=== PATIENT | male | born 1965 | race Caucasian/White ===

== ENCOUNTER → 2018-08-27 09:14 | Outpatient (CLI) | payer OTHER, SELFPAY ==
--- NOTE | 2018-08-27 09:23 | RAD_ITS ---
HISTORY: low back pain, left hip pain and numbness down leg COMPARISON: None FINDINGS: XR Spine Lumbar 5 views The lumbar vertebra show normal height and alignment. No fracture or acute disease. The lumbar disc space heights are grossly preserved. Mild anterolateral endplate spurring of the L4-5 and L5-S1 levels. The posterior elements appear intact. No spondylolisthesis. The SI joints are grossly preserved. Abdominal aorta is atherosclerotic. RAD/L/S Spine Min 4 Views IMPRESSION: 1. No fracture or acute disease. 2. L4-5 and L5-S1 mild degenerative spondylosis. 3. Atherosclerotic calcifications. at 0814 Reported and signed by: Paul Bryant MD Electronically Signed: Paul Bryant, at 8:13 EST Tel , Service support ,
--- NOTE | 2018-08-27 09:24 | RAD_ITS ---
HISTORY: low back pain, left hip pain and numbness down leg COMPARISON: 02/04/2016 FINDINGS: XR left Hip Unilateral with Pelvis when performed; 3 Views: No fracture or acute disease. Left hip advanced osteoarthritis with marked joint space narrowing accompanied by marginal spurring and subchondral cyst formation of both the acetabulum and femoral head. Joint space narrowing is greatest at the superior lateral joint space and osteoarthritis has progressed compared to previous. Additional mild narrowing of the right hip joint. The right femoral head at the head neck junction shows a lateral bony spur like density as seen with Cam type femoral acetabular impingement. Chronic deformity of the right superior and inferior pubic rami compatible with old trauma. The SI joints are grossly preserved. RAD/HIP, UNI W/ Pelvis 2-3 Views IMPRESSION: 1. Left hip advanced osteoarthritis with worsening compared to the 2016 exam. 2. Right hip mild osteoarthritis with suggestion of underlying femoral acetabular impingement on the right. at 0810 Reported and signed by: Paul Bryant MD Electronically Signed: Paul Bryant, at 8:09 EST Tel , Service support ,
[2018-08-27 12:16] LABS: Anion Gap 9 (5-15); BUN 16 mg/dL (7-18); BUN/Creat Ratio 15.2 RATIO (10-20); Calcium,Total 8.7 mg/dL (8.5-10.1); Chloride 103 mmol/L (98-107); Cholesterol 173 mg/dL (200); Creatinine, Serum 1.05 mg/dL (0.70-1.30); EST Glomerular Filtration Rate 79 mL/min (>60); Est Glom Filt Rate - Afr Amer 95 mL/min (>60); Glucose 116 mg/dL (74-106); High Density Lipoprotein 35 mg/dL; Sodium Level 140 mmol/L (136-145); Triglycerides 98 mg/dL; Very Low Density Lipoprotein 20 mg/dL (5-40)
== END ==
PROVIDERS: Family Provider Family Medicine; PCP Family Medicine; Referring Provider Family Medicine; Visit Provider Family Medicine
DX: I10 Essential (primary) hypertension (principal); M54.40 Lumbago with sciatica, unspecified side; M47.897 Other spondylosis, lumbosacral region; M16.0 Bilateral primary osteoarthritis of hip
CPT/HCPCS: 36415; 72110; 73502; 80048; 80061

== ENCOUNTER → 2018-09-10 09:35 | Outpatient (CLI) | payer OTHER, SELFPAY ==
--- NOTE | 2018-09-10 09:48 | MRI_ITS ---
STUDY: MRI LUMBAR SPINE WITHOUT CONTRAST REASON FOR EXAM: Male, 52 years old. LEFT HIP PAIN, pain and burning down left leg, groin pain. TECHNIQUE: Standardized fat and water weighted pulse sequences were obtained in the sagittal and axial planes. COMPARISON: X-ray dated August 27, 2018 FINDINGS: T12-L1: Normal endplates. Normal disc height, hydration and morphology. Normal bilateral facet joints. Normal central canal and bilateral lateral recesses. Normal bilateral intervertebral neural foramina. There is incompletely visualized dorsal fluid collection measuring approximately 0.5 x 3.6 cm (axial image #27 series 5). There is mass effect on the dorsal spinal cord Normal lumbar lordosis. There is mild scoliosis Normal conus medullaris that terminates at the L1 L1-2: There is minimal disc space narrowing and endplate spondylosis. There is a minimal disc bulge and epidural lipomatosis with moderate central canal stenosis. There is mild facet arthropathy. There is no foraminal stenosis. L2-3: There is minimal disc space narrowing and endplate spondylosis. There is a minimal disc bulge and facet arthropathy with moderate central canal stenosis. There is mild facet arthropathy. There is mild bilateral foraminal stenosis. L3-4: There is minimal disc space narrowing and endplate spondylosis. There is a minimal disc bulge and facet arthropathy with moderate central canal stenosis. There is mild facet arthropathy. There is mild bilateral foraminal stenosis. L4-5: There is minimal disc space narrowing and endplate spondylosis. There is a minimal disc bulge and facet arthropathy with mild central canal stenosis. There is mild facet arthropathy. There is mild bilateral foraminal stenosis. L5-S1: There is minimal disc space narrowing and endplate spondylosis. There is a minimal disc bulge and facet arthropathy with mild central canal stenosis. There is mild facet arthropathy. There is mild bilateral foraminal stenosis. Normal visualized sacral ala. Normal visualized paraspinous soft tissue structures. MRI/Spine Lumbar (Routine) IMPRESSION: T12/L1: Fluid collection with mild compression of the spinal cord. Further evaluation with contrast-enhanced MRI of the thoracic spine with attention to this region is recommended. Multilevel moderate central canal stenosis. N.B. : The above information has been verbally conveyed by Aimee Biswas MD to Dr. Cheryl MD, on 09/11/2018 10:20:36 (ET). Electronically Signed: Aimee Biswas MD at 10:12 EST Tel , Service support ,
--- OUTSIDE RECORDS SUMMARY | 2018-11-12 19:45 | XMS RPT_ITS ---
:1965 Author Organization OH[facility] Care Team Providers Name Role Phone Austin Luna Attending Unavailable Austin Luna Referring Unavailable Austin Luna Primary Care Unavailable Austin Luna Attending Unavailable Austin Luna Referring Unavailable Austin Luna Primary Care Unavailable PROBLEMS PROBLEMS DATE TYPE CONDITION / CODE ATTENDING STATUS SOURCE 08/27/2018 Unknown M54.42 - Lumbago Cheryl, Active [facility] with sciatica, left [facility] side / Hospital M54.42(ICD-10) Repository 08/27/2018 Unknown M16.9 - Ranney, Active [facility] Osteoarthritis of [facility] hip, unspecified / Hospital M16.9(ICD-10) Repository 08/27/2018 Unknown I10 - Essential Mattmaribell, Active [facility] (primary) [facility] hypertension / Hospital I10(ICD-10) Repository PROCEDURES PROCEDURES No Procedure Records FoundRESULTS RESULTS SPINE LUMBAR Observed: 09/10/2018 Status: F Source: JUNG (ROUTINE) 9:48 AM [facility] REPOSITORY [facility] Imaging Services [address] [place] [address] Spine Lumbar (Routine) MR#: [id number] Acct: [id number] Name: JOSEPH JACKSON Rep #: [id number] : 1965 M 52 From: Aimee Biswas PCP: Austin Luna MD Status: REG CLI Study: Spine Lumbar (Routine) Date of Exam: 09/10/18 Exam# [id number] Ordering Dr: Sergio Luna MD STUDY: MRI LUMBAR SPINE WITHOUT CONTRAST REASON FOR EXAM: Male, 52 years old. LEFT HIP PAIN, pain and burning down left leg, groin pain. TECHNIQUE: Standardized fat and water weighted pulse sequences were obtained in the sagittal and axial planes. COMPARISON: X-ray dated August 27, 2018 FINDINGS: T12-L1: Normal endplates. Normal disc height, hydration and morphology. Normal bilateral facet joints. Normal central canal and bilateral lateral recesses. Normal bilateral intervertebral neural foramina. There is incompletely visualized dorsal fluid collection measuring approximately 0.5 x 3.6 cm (axial image #27 series 5). There is mass effect on the dorsal spinal cord Normal lumbar lordosis. There is mild scoliosis Normal conus medullaris that terminates at the L1 L1-2: There is minimal disc space narrowing and endplate spondylosis. There is a minimal disc bulge and epidural lipomatosis with moderate central canal stenosis. There is mild facet arthropathy. There is no foraminal stenosis. L2-3: There is minimal disc space narrowing and endplate spondylosis. There is a minimal disc bulge and facet arthropathy with moderate central canal stenosis. There is mild facet arthropathy. There is mild bilateral foraminal stenosis. L3-4: There is minimal disc space narrowing and endplate spondylosis. There is a minimal disc bulge and facet arthropathy with moderate central canal stenosis. There is mild facet arthropathy. There is mild bilateral foraminal stenosis. L4-5: There is minimal disc space narrowing and endplate spondylosis. There is a minimal disc bulge and facet arthropathy with mild central canal stenosis. There is mild facet arthropathy. There is mild bilateral foraminal stenosis. L5-S1: There is minimal disc space narrowing and endplate spondylosis. There is a minimal disc bulge and facet arthropathy with mild central canal stenosis. There is mild facet arthropathy. There is mild bilateral foraminal stenosis. Normal visualized sacral ala. Normal visualized paraspinous soft tissue structures. MRI/Spine Lumbar (Routine) IMPRESSION: T12/L1: Fluid collection with mild compression of the spinal cord. Further evaluation with contrast-enhanced MRI of the thoracic spine with attention to this region is recommended. Multilevel moderate central canal stenosis. N.B. : The above information has been verbally conveyed by Aimee Biswas MD to Dr. Cheryl MD, on 09/11/2018 10:20:36 (ET). Electronically Signed: Aimee Biswas MD at 10:12 EST Tel , Service support , CC: Austin Luna MD Gear Setter: Signed BASIC METABOLIC Collected: 08/27/2018 Status: F Source: [facility] PROFILE ([facility]) 9:26 AM [facility] REPOSITORY TYPE CODE TESTS RESULT OUT OF RANGE REFERENCE UNITS LAB L501.0100 74-106 mg/dL High GLU 116 Result Comment: Fasting Glucose result from 100 to 125 mg/dL suggests IMPAIRED HOMEOSTASIS per A.D.A. criteria. Please note revised GLUCOSE reference range effective 2017. LAB L501.1000 7-18 mg/dL Normal BUN 16 LAB L501.1100 0.70-1.30 mg/dL Normal CREAT,SERUM 1.05 Result Comment: The validity of the calculated GFR AND GFRAA in patients over 70 years has not been determined. Clinical correlation is essential. LAB L501.1110 >60 mL/min Normal EST GFR 79 Result Comment: Non- GFR Calc LAB L501.1115 >60 mL/min Normal EST GFR - AA 95 Result Comment: GFR Calc LAB L501.1300 10-20 RATIO Normal BUN/CRE 15.2 LAB L501.2200 8.5-10.1 mg/dL CA Normal 8.7 LAB L501.5300 136-145 mmol/L NA Normal 140 LAB L501.5600 3.5-5.1 mmol/L K Normal 4.0 LAB L501.5900 98-107 mmol/L CL Normal 103 LAB L501.6100 21.0-32.0 mmol/L Normal CO2 28.0 LAB L501.6200 5-15 Normal GAP 9 Performed By: #### L500.2500, L500.4100 #### [facility] Laboratory [facility] [place], [address] LIPID PROFILE Collected: 08/27/2018 Status: F Source: [place] 9:26 AM [facility] REPOSITORY TYPE CODE TESTS RESULT OUT OF RANGE REFERENCE UNITS LAB L501.4900 200 mg/dL Normal CHOL 173 Result Comment: <200 mg/dL Desirable 200-240 mg/dL Borderline >240 mg/dL High Risk LAB L501.5000 mg/dL Normal TRIG 98 Result Comment: The drugs N-Acetylcysteine and Metamizole may falsely depress this assay. Serum Triglycerides Reference Interval Normal <150 mg/dL Borderline high 150 - 199 mg/dL High 200 - 499 mg/dL Very High > or = 500 mg/dL LAB L501.6400 mg/dL Low HDL 35 Result Comment: The drugs N-Acetylcysteine and Metamizole may falsely depress this assay. Reference Range HDL <40 mg/dL Low HDL Cholesterol HDL >or= 60 mg/dL High HDL Cholesterol LAB L501.6500 0-130 mg/dL Normal LDL 118 LAB L501.6600 5-40 mg/dL Normal VLDL 20 Performed By: #### L500.2500, L500.4100 #### [facility] Laboratory [address] [place], [address] HIP, UNI W/ PELVIS Observed: 08/27/2018 Status: F Source: [place] 2-3 VIEWS 9:24 AM [facility] REPOSITORY [facility] Imaging Services [address] [address] HIP, UNI W/ Pelvis 2-3 Views MR#: [id number] Acct: [id number] Name: JOSEPH JACKSON Moody Rep #: [id number] : 1965 M 52 From: Paul Bryant MD PCP: Austin Luna MD Status: REG CLI Study: HIP, UNI W/ Pelvis 2-3 Views Date of Exam: 08/27/18 Exam# [id number] Ordering Dr: Sergio Luna MD HISTORY: low back pain, left hip pain and numbness down leg COMPARISON: 02/04/2016 FINDINGS: XR left Hip Unilateral with Pelvis when performed; 3 Views: No fracture or acute disease. Left hip advanced osteoarthritis with marked joint space narrowing accompanied by marginal spurring and subchondral cyst formation of both the acetabulum and femoral head. Joint space narrowing is greatest at the superior lateral joint space and osteoarthritis has progressed compared to previous. Additional mild narrowing of the right hip joint. The right femoral head at the head neck junction shows a lateral bony spur like density as seen with Cam type femoral acetabular impingement. Chronic deformity of the right superior and inferior pubic rami compatible with old trauma. The SI joints are grossly preserved. RAD/HIP, UNI W/ Pelvis 2-3 Views IMPRESSION: 1. Left hip advanced osteoarthritis with worsening compared to the 2016 exam. 2. Right hip mild osteoarthritis with suggestion of underlying femoral acetabular impingement on the right. at 0810 Reported and signed by: Paul Bryant MD Electronically Signed: Paul Bryant, at 8:09 EST Tel , Service support , CC: Austin Luna MD Gear Setter: Signed L/S SPINE MIN 4 Observed: 08/27/2018 Status: F Source: JUNG VIEWS 9:24 AM [facility] REPOSITORY [facility] Imaging Services [address] [place] [id number] L/S Spine Min 4 Views MR#: [id number] Acct: [id number] Name: JOSEPH JACKSON Rep #: [id number] : 1965 M 52 From: Paul Bryant MD PCP: Austin Luna MD Status: REG CLI Study: L/S Spine Min 4 Views Date of Exam: 08/27/18 Exam# [id number] Ordering Dr: Sergio Luna MD HISTORY: low back pain, left hip pain and numbness down leg COMPARISON: None FINDINGS: XR Spine Lumbar 5 views The lumbar vertebra show normal height and alignment. No fracture or acute disease. The lumbar disc space heights are grossly preserved. Mild anterolateral endplate spurring of the L4-5 and L5-S1 levels. The posterior elements appear intact. No spondylolisthesis. The SI joints are grossly preserved. Abdominal aorta is atherosclerotic. RAD/L/S Spine Min 4 Views IMPRESSION: 1. No fracture or acute disease. 2. L4-5 and L5-S1 mild degenerative spondylosis. 3. Atherosclerotic calcifications. at 0814 Reported and signed by: Paul Bryant MD Electronically Signed: Paul Bryant, at 8:13 EST Tel , Service support , CC: Austin Luna MD Gear Setter: Signed ALLERGIES ALLERGIES No Allergies Records FoundENCOUNTERS ENCOUNTERS ADMIT/DISCHARGE ACCOUNT ADMITTING ENCOUNTER LOCATION SOURCE NUMBER CLASS 09/10/2018 [id number] Ambulatory [facility] ing:MRI Repository 08/27/[id number] ing:MTLAB Repository PAYERS PAYERS ENCOUNTER GUARANTOR PAYER SUBSCRIBER SOURCE 09/10/2018 JOSEPH Uriostegui Primary Insurance:[facility] JOSEPH Feng [id number] HEYL PACKAGE PLANPolicy ICKESDOB: [place], [place] Number: [id number] [address]Qbn: [phone] [id number] Repository [phone] () Date:2018-09-04 09/10/2018 Secondary JOSEPH Feng Insurance:MED MUTUAL ICKESDOB: [facility] Number: [id number] [id number] Repository Date:[id number] [address], [place] [address]FZ: CHECK WEBSITE 09/10/2018 Tertiary NOT GIVENUNK Jung Insurance:SELF PAY [facility] Number: Effective Repository Date:2018-09-04 08/27/2018 JOSEPH JACKSON Primary Insurance:MED JOSEPH JACKSON Jung [id number] HEYL MUTUAL TPAPolicy JRDOB: [place], [place] Number: [id number] [address]Cnc: [phone] [id number] Repository [phone] (HP) Date:[id number] [address], [place] [address]BD: CHECK WEBSITE 08/27/2018 Secondary NOT GIVENUNK Jung Insurance:SELF PAY [facility] Number: Effective Repository Date:2018-08-27
== END ==
PROVIDERS: Family Provider Family Medicine; PCP Family Medicine; Referring Provider Family Medicine; Visit Provider Family Medicine
DX: M25.552 Pain in left hip (principal)
CPT/HCPCS: 72148

== ENCOUNTER → 2018-09-19 13:09 | Outpatient (CLI) | payer OTHER, SELFPAY ==
--- NOTE | 2018-09-19 13:24 | MRI_ITS ---
STUDY: MRI THORACIC SPINE WITH AND WITHOUT CONTRAST REASON FOR EXAM: Male, 52 years old. Thoracic cord abnormality TECHNIQUE: 13 ml of Gadavist was administered intravenously for the contrast portion of the examination. COMPARISON: MR lumbar spine September 10, 2018 FINDINGS: Normal kyphosis of the thoracic spine. There is no substantial scoliosis. T1-2, T2-3, T3-4, T4-5, T5-6, T6-7, T7-8, T8-9, T9-10, T10-11, T11-12: Normal endplates. Normal disc hydration, heights and morphology of the corresponding intervertebral discs. Normal central canal and intervertebral neural foramina at the corresponding levels. Normal visualized thoracic cord. Normal conus medullaris that terminates at the lumbar level. Intrathecal extradural fluid collection is again noted posterior to the cord at the T12-L1 level. It measures 3 x 7 mm in AP and transverse dimensions. It is incompletely imaged within the [id number]. It does not demonstrate any enhancement and is isointense with CSF essentially. This may extend superiorly to the T10 level. Does not appear to compress the cord/conus. The soft tissue structures are unremarkable. There is no enhancing abnormality. MRI/Spine Thoracic W/WO Contrast IMPRESSION: Probable l arachnoid cyst incompletely imaged as above. Follow-up as clinically warranted. Electronically Signed: Law Cruz MD at 0:11 EST , Service support ,
== END ==
PROVIDERS: Family Provider Family Medicine; PCP Family Medicine; Referring Provider Family Medicine; Visit Provider Family Medicine
DX: M54.40 Lumbago with sciatica, unspecified side (principal)
CPT/HCPCS: 72157; A9585

== ENCOUNTER → 2018-12-18 09:50 | Outpatient (CLI) | payer OTHER, SELFPAY ==
--- NOTE | 2018-12-18 09:54 | RAD_ITS ---
PROCEDURE: Fluoroscopic guided left Hip Injection DATE: December 18, 2018. INDICATION: Male, 53 years old. Chronic hip pain. PHYSICIAN: Reynaldo Harris M.D. MEDICATIONS: 80 mg of Depomedrol, 4 cc 1% lidocaine. 2% lidocaine administered subcutaneously for local anesthesia. ACCESS SITE: Left hip. NEEDLE: 22-gauge spinal needle. FLUOROSCOPY TIME (if supplied): (1:40) minutes/seconds FINDINGS: The risks, benefits, and alternatives to the procedure were explained to the patient. The specific risks of bleeding, infection, and neurovascular injury were detailed and accepted. Witnessed informed consent was obtained. A 22-gauge spinal needle was positioned under radiographic fluoroscopic localization. Approximately 2 cc of Omnipaque Isovue-300 instilled for localization purposes. Medication was then injected. The patient tolerated the procedure well without any immediate complications. The patient was placed supine with head elevated and returned to the floor in stable condition. RAD/Inj/Asp Roberto Jt Should/Hip/Knee IMPRESSION: 1. Successful fluoroscopic guided hip injection. Electronically Signed: Reynaldo Harris, at 11:32 EDT , Service support ,
== END ==
PROVIDERS: Family Provider Family Medicine; PCP Family Medicine; Referring Provider Family Medicine; Visit Provider Family Medicine
DX: M25.552 Pain in left hip (principal)
CPT/HCPCS: 20610; 77002; Q9967

== ENCOUNTER → 2019-05-13 09:45 | Outpatient (CLI) | payer OTHER, SELFPAY ==
--- NOTE | 2019-05-13 09:49 | RAD_ITS ---
PROCEDURE: Fluoroscopic guided Hip Injection DATE: May 13, 2019 INDICATION: Male, 53 years old. Chronic left hip pain. PHYSICIAN: Reynaldo Harris M.D. MEDICATIONS: 80 mg of betamethasone and 5 cc of 1% lidocaine. 2.5% Lidocaine administered subcutaneously for local anesthesia. ACCESS SITE: Left hip. NEEDLE: 22-gauge spinal needle. FLUOROSCOPY TIME (if supplied): (1:08) minutes/seconds FINDINGS: The risks, benefits, and alternatives to the procedure were explained to the patient. The specific risks of bleeding, infection, and neurovascular injury were detailed and accepted. Witnessed informed consent was obtained. A 22-gauge spinal needle was positioned under radiographic fluoroscopic localization. Approximately 2 cc of Isovue-300 instilled for localization purposes. Medication was then injected. The patient tolerated the procedure well without any immediate complications. RAD/Inj/Asp Roberto Jt Should/Hip/Knee IMPRESSION: 1. Successful fluoroscopic guided hip injection. Electronically Signed: Reynaldo Harris, at 12:36 EDT , Service support ,
== END ==
PROVIDERS: Family Provider Family Medicine; PCP Family Medicine; Referring Provider Family Medicine; Visit Provider Family Medicine
DX: M25.552 Pain in left hip (principal)
CPT/HCPCS: 20610; 77002; Q9965

== ENCOUNTER 2019-07-24 06:46 | Inpatient (IN) | payer OTHER, SELFPAY ==
[2019-06-27 08:25] VITALS: BP 154/98; PULSE 54; RESP 16; TEMP 36.6; O2SAT 95; BMI 41.3
--- NOTE | 2019-06-27 08:32 | SDCEKG_ITS ---
Test Reason : Blood Pressure : / mmHG Vent. Rate : 059 BPM Atrial Rate : 059 BPM P-R Int : 140 ms QRS Dur : 082 ms QT Int : 396 ms P-R-T Axes : 027 001 006 degrees QTc Int : 392 ms Sinus bradycardia Inferior infarct , age undetermined Abnormal ECG Confirmed by BRANDYN JARQUIN, CHERRIE ([id number]), associate entertainment editor ARJUN ALEXIS ([id number]) on 07/02/2019 2:45:37 PM Referred By: Kelechi Sykes Confirmed By:CHERRIE AHUMADA MD
[2019-06-27 09:11] LABS: Absolute Lymphocyte Count 1.63 X10^3/uL (0.83-4.51); Absolute Neutrophil Count 3.5 X10^3/uL (2.0-7.7); Basophil# 0.06 X10^3/uL; Eosinophil# 0.14 X10^3/uL; Eosinophils% 2.3 % (0-5); Hematocrit 44.3 % (40-54); Hemoglobin 14.6 g/dL (13.0-16.5); Lymphocyte # 1.63 X10^3/ul (4.0); Lymphocyte % 27.2 % (19-41); Mean Corpuscular Hgb 31.3 pg (27.0-32.0); Mean Corpuscular Volume 94.9 fL (80-94); Mean Platelet Vol. 10.4 fl (6.2-12.0); Monocyte# 0.57 X10^3/uL; Monocyte% 9.5 % (0-10); NRBC Flagged by Analyzer 0 % (0-5); Neutrophil # 3.54 X10^3/uL (2.7-7.7); Platelet Count 177 K/mm3 (150-450); RBC Distribution Width CV 12.4 % (11.6-14.6); RBC Distribution Width SD 42.6 fl (35.1-43.9); Red Blood Count 4.67 M/mm3 (4.6-6.2)
[2019-06-27 09:57] LABS: Anion Gap 6 (5-15); BUN 27 mg/dL (7-18); BUN/Creat Ratio 25.5 RATIO (10-20); Calcium,Total 8.7 mg/dL (8.5-10.1); Chloride 102 mmol/L (98-107); Creatinine, Serum 1.06 mg/dL (0.70-1.30); EST Glomerular Filtration Rate 78 mL/min (>60); Est Glom Filt Rate - Afr Amer 94 mL/min (>60); Estimated Creatinine Clearance 91.08 ml/min; Glucose 123 mg/dL (74-106); Potassium 4.4 mmol/L (3.5-5.1); Sodium Level 139 mmol/L (136-145)
--- NOTE | 2019-06-27 10:15 | NS ---
MST score of 4 d/t weight gain. UBW 260# and CBW 313#. Wt gain d/t physical inactivity r/t hip pain per pt. Additional oral nutrition supplements not warranted at this time. Discussed w/ PAT DUNG Carroll- please encourage pt to continue general healthy diet prior to surgery and drink Ensure Pre-Surgery drinks per ERAS protocol. Doug Smith MS, RDN, LD
--- NOTE | 2019-06-28 12:07 | HP.PCM_ITS ---
History and Physical History and Physical Patient Name: Marcos Vann : 1965 From: FRANKLIN HAMILTON PA-C DATE OF SURGERY: 07/24/2019 SCHEDULED PROCEDURE: left total hip arthroplasty HISTORY OF PRESENT ILLNESS: Preoperative history and physical exam was performed on June 26, 2019. This is a 53-year-old male has been having ongoing pain in his left hip for several years. His pain as being constant. Patient does have increased pain after playing golf. He has pain going up and down stairs, driving, sitting, and walking. Patient does have start up pain. He has pain that begins in the groin and moves over to the lateral hip. Pain does awaken him at night. He has difficult time with activities of daily living including leisure activities including golf and walking. Patient has tried rest, elevation with minimal relief. He has tried corticosteroid injection with no relief in symptoms. He has been on oral medications consisting of Aleve. Patient has put on weight due to his inability to exercise. Patient has medical history pertinent for hypertension. He currently denies fevers, chills, chest pain, shortness of breath. We are obtaining surgical clearance from his primary care physician Dr. Arroyo. After failing conservative measures and discussing treatment options with Dr. Kelechi Sykes, the patient does wish to proceed with a left total hip arthroplasty. REVIEW OF SYSTEMS: ROS: Const: Denies change in appetite, fever and weight change. CV: Denies chest pain, heart murmur and irregular heartbeat. Resp: Denies cough, pneumonia, shortness of breath, tuberculosis and wheezing. GI: Denies constipation, diarrhea, heartburn, nausea, rectal itching, bloody stools and vomiting. : Denies incontinence. Musculo: Denies leg swelling, pain, trouble walking and weakness. Skin: Denies Raynaud's, history of shingles and tattoo. Neuro: Denies ambulatory dysfunction, dizziness, numbness/tingling and tremor. Psych: Reports insomnia, but denies anxiety and stress. Hair/Lymph: Denies anemia, bleeding/bruising tendency and past transfusion. Reviewed and updated. PAST MEDICAL HISTORY: Advance Care Plan: No Advance Directives Effective Date: 06/17/2019 PMH: Medical Problems: Arthritis, High Blood Pressure Accidents: Fracture - LT LEG A CHILD Surgical Hx: None Anesthesia Complications: None Assistive Devices: Contacts, Glasses Reviewed and updated. SOCIAL HISTORY: SH: Marital: .Occupation: Self Employed.Work Status: Currently Working.Hand Dominance: Right-handed. Personal Habits: Cigarette Use: Never Smoked Cigarettes.Smokeless Tobacco: Never Used Smokeless Tobacco.E-Cigarette Use: Never used.Alcohol: Occasionally.Drug Use: Denies Use.Enjoy Exercising: Never Exercises. Reviewed and updated. VITALS: Ht: 71.5 Wt: 308lb Wt k.709 BMI: 42.4 BP: 140/80 Pulse: 62 Resp: 20 T: 98.2 T: 36.8C ALLERGIES: No Known Drug Allergy MEDICATIONS: Aleve 220 mg 4 tabs PO daily, Hydrochlorothiazide 12.5 mg 1 tab PO daily, Lisinopril 20 mg 1 tab PO daily PRE-OP EXAM: General appearance:NORMAL Other: Eyes: Conjunctivae and lids: NORMAL Pupils: ERR Ears, Nose, Mouth, and Throat: NORMAL Other: Inspection of lips, teeth and gums: NORMAL Other: Neck: Examination of neck: no masses noted. Respiratory: Assessment of respiratory effort: NORMAL Other: Auscultation of lungs: clear to auscultation no wheezes, rhonchi or rales. Cardiovascular: Auscultation of heart: regular rate and rhythm, no murmurs, gallops or rubs. Gastrointestinal: Exam of abdomen: soft, nontender, nondistended bowel sounds present. PHYSICAL EXAMINATION: She does walk with antalgic gait. Left hip is cool to touch without erythema. He does have crepitus with range of motion. Range of motion patient has obligatory external rotation with flexion. Flexion to 90, internal rotation 10, external rotation 20. Tenderness to palpation over the lateral left hip. Left lower extremity is 3 mm shorter when compared to the right. IMAGING STUDIES: Previous x-rays of the left hip reveal joint space narrowing with subchondral sclerosis and subchondral cysts in the acetabulum and femoral head with osteophyte formation consistent with severe osteoarthritis. Patient has had progressive collapse of the large femoral head subchondral cyst from previous x- rays. IMPRESSION: 1. Severe left hip osteoarthritis 2. Hypertension PLAN: Dr. Kelechi Sykes did discuss and review with the patient all treatment options including surgical versus nonsurgical options. Patient does wish to proceed w ith the above-stated procedure. Potential risks, benefits, and complications of the procedure were discussed in detail including but not limited to , infection, nerve and blood vessel damage, persistent pain, numbness, tingling, paresthesias, blood clot, pulmonary embolism, and requirement for possible further surgery. The patient expressed full understanding and has no further questions for the doctor. Patient does agree to proceed with the above-stated procedure and has signed the surgery consent form. This dictation was created using voice recognition software. Phonetic and/or grammatical errors may exist. ___ I have re-examined the patient. There are no clinical changes since date of exam. ___ See progress notes for changes. ___ Dictated on admission Date: Time: Signature:
[2019-07-24] VITALS (11 sets, daily range): BP systolic 101–164; BP diastolic 44–90; PULSE 65–80; RESP 16–18; TEMP 35.8–37.3; O2SAT 95–100; BMI 41.3
[2019-07-24 07:20] LABS: Bedside Glucose 122 mg/dL (70-110)
[2019-07-24] MEDS: Celecoxib 200 MG Capsule 400 MG PO (07:47)
[2019-07-24] MEDS: Acetaminophen 500 MG Tablet 1000 MG PO ×3 (07:47→21:29)
[2019-07-24] MEDS: Gabapentin 600 MG Tablet PO (07:47)
[2019-07-24] MEDS: Scopolamine 1mg/72hr Patch 1 PATCH TRANSDERM. (07:51)
[2019-07-24] MEDS: Lactated Ringers 1,000 ML 999 ML IV (07:53)
[2019-07-24] MEDS: Magnesium Sulfate 4gm/100mL 4 GM/100 ML IV.SOLN. IV (07:55)
--- NOTE | 2019-07-24 08:45 | RAD_ITS ---
STUDY: X-RAY - LEFT HIP REASON FOR EXAM: Left total hip arthroplasty. TECHNIQUE: 3 fluoroscopic images of the left hip. COMPARISON: Radiographs 08/27/2018. FINDINGS: Intraoperative images demonstrate acetabular cup and femoral stem prostheses without evidence of complication. Electronically Signed: Ja Humphreys MD at 10:55 EST Tel , Service support , RAD/Hip 1 view with Pelvis
[2019-07-24] MEDS: Cefazolin 2 GM in 0.9% Normal Saline 100 ML IV (08:49)
--- NOTE | 2019-07-24 10:31 | PCM.OPRPT ---
Report of Operation Date of Procedure: 07/24/19 Pre-Operative Diagnosis: Left hip primary osteoarthritis Post-Operative Diagnosis: Left hip primary osteoarthritis Surgery/Procedure Performed:: Left minimally invasive direct anterior total hip replacement Description of Surgical Findings:: Stable hip with equal leg lengths director of special events: Tj Ybarra Type of Anesthesia:: Spinal Anesthesiologist: Andrea Thorpe Special Medications: 2 g Ancef, 1 g TXA at incision, 1 g TXA closure, 10 mg Decadron, joint cocktail (5 mg Duramorph, 30 mL of 0.5% Ropivicaine, 1000 units of epinephrine, 30 mg of Toradol) Specimen's removed: Bony cuts Estimated Blood Loss (mL): 150 Fluids Replaced: 1000 L crystalloid Description of Procedure: Components used: 1. Accolade 2 [place] femoral stem size 6 127? 2. [place] trident 2 acetabular shell size 56 mm 3. Geno X3 polyethylene F 4. Geno Biolox delta 36mm, +5mm femoral head Brief history operative indications: 53 yo M who failed conservative measures for their hip osteoarthritis. X-rays were consistent with osteoarthritis including joint space narrowing, osteophyte formation and subchondral cysts. Total hip replacement was discussed with the patient with risks and benefits including but not limited to blood loss, DVTs, PEs, neurovascular damage, dislocation, general risks of anesthesia including loss of life. Patient demonstrated an understanding medical clearance is obtained the patient was consented for surgery. Procedure: On the date of procedure the patient's L hip was marked in the preoperative area. Patient was then taken back to the operating room where anesthesia assumed control of the C-spine and airway and administered anesthetic. Patient was transferred to the operating table and placed in the supine position. The hips were placed at the break of the bed and a sacral bump was placed. The L lower extremity was then prepped out in a sterile fashion using chlorhexidine while the surgeon scrubbed. The PA was vital in the positioning of the patient. Upon reentering the room the L lower extremity was draped in the standard orthopedic fashion and the incision was marked. A timeout was called and everyone agreed upon the side, the site, the procedure be performed, antibody given, and patient's identity. At this time incision was made through skin, subcutaneous tissue, and fat down to fascia. The fascia was then incised and the TFL was retracted laterally. A retractor was placed on the lateral border of the femoral neck. Attention was directed to the inferior portion of the approach and all crossing vessels were identified and appropriately coagulated. A retractor was then placed on the medial portion of the femoral neck. The anterior capsule was then cleared of all soft tissue and then H shaped capsulotomy was made. The retractors were then placed inside the capsule. The femoral neck was identified and a cleanup cut was made. At this time a power corkscrew was used to remove the femoral head. Attention was then turned toward the acetabulum where the soft tissues were appropriately retracted and the acetabulum was sequentially reamed to 56 mm. A 56 mm cup was then selected and impacted into place. Acetabular liner was impacted into place and locking mechanism was verified. The position of the acetabular cup was then verified under live fluoroscopy. Attention was then turned to the femur. Soft tissue releases on the medial and lateral femoral neck were appropriately done, the leg was externally rotated and lateralized. A Watson retractor was placed medially and proximally to the greater trochanter this allowed appropriate visualization and exposure of the femoral canal. Rongeour was then used to remove excess lateral bone. A canal finder and entry broach were used to open the proximal canal. Once we verified we were down the femoral canal we subsequently broached up to a size 6 femur. The appropriate neck was placed in the previously selected head was trialed with a +5 mm neck. Traction was pulled and the hip was reduced with internal rotation. Once it was appropriately reduced and stability was checked. There was minimal shuck, equal leg lengths and appropriate stability with hyperextension and external rotation as well as with 90? flexion and internal rotation. Fluoroscopy was then also used to verify the position of the components and leg lengths using the contralateral side for comparison. The trial components were then dislocated the proximal femur was again exposed and the components were removed from the wound. The final components were verified and opened. The wound was copiously irrigated out with normal saline. The acetabulum was checked for any residual debris. The final components were placed and impacted. Traction and internal rotation were again used to reduce the hip. After adequate reduction the hip remained stable with appropriate leg lengths. The final components were once again checked with live fluoroscopy and were found to be satisfactory. The wound was then copiously irrigated with normal saline once more, and hemostasis was obtained. Closure was then done using #1 Vicryl runner to close the fascia. A 2-0 vicryl interuppted sutures were used to close the subcutaneous skin. A 3-0 Monocryl and Steri-Strips were used for final skin closure. A Silverlon dressing was placed. Patient was awakened by anesthesia and transferred to the [facility]. Patient was then transferred to the PACU for recovery. Postoperative plan: Patient will get 24 hours postop antibiotics. Patient will get in-house physical therapy and will be weight-bear as tolerated. Patient will follow up in office in 2 weeks for a wound check and x-rays. - Complications No intraoperative complications - Admit VTE Documentation VTE Present on Admission: No VTE Mechan Device Prophylaxis: SCD's, Thigh High TYESHA Hose VTE Pharm Prophylaxis ordered?: Yes
--- NOTE | 2019-07-24 11:15 | RAD_ITS ---
STUDY: X-RAY - PELVIS AND LEFT HIP REASON FOR EXAM: Male, 53 years old. Postop TECHNIQUE: 3 views of the pelvis and hip. COMPARISON: None. FINDINGS: Patient is status post a total left hip arthroplasty. Hardware appears intact and well aligned. Mineralization is within normal limits. No acute fracture is identified. The visualized right hip demonstrates significant arthrosis. RAD/Hip Min 2 Views (Portable) IMPRESSION: Status post left total hip arthroplasty. Electronically Signed: Gerber Khan, at 16:09 EST Tel , Service support ,
[2019-07-24] MEDS: Morphine 2 MG/ML Syringe IV (13:09)
[2019-07-24] MEDS: Lactated Ringers 1,000 ML 125 ML IV (14:17)
[2019-07-24] MEDS: Aspirin 81 MG TAB.CHEW PO (17:27)
[2019-07-24] MEDS: Cefazolin 1 GM/50 ML BAG IV (17:27)
[2019-07-24] MEDS: Senna/Docusate Sodium 1 Tablet 2 TABLET PO (21:30)
[2019-07-25] MEDS: Cefazolin 1 GM/50 ML BAG IV (01:08)
[2019-07-25 03:05] VITALS: BP 149/79; PULSE 68; RESP 18; TEMP 37.2; O2SAT 96
[2019-07-25] MEDS: traMADol 50 MG Tablet PO ×2 (03:10→13:13)
[2019-07-25] MEDS: Acetaminophen 500 MG Tablet 1000 MG PO ×2 (05:45→13:12)
[2019-07-25 05:48] LABS: Hematocrit 40.4 % (40-54); Hemoglobin 13.3 g/dL (13.0-16.5); Mean Corp Hgb Conc 32.9 g/dL (32-36); Mean Corpuscular Volume 94.2 fL (80-94); Mean Platelet Vol. 10.4 fl (6.2-12.0); Platelet Count 171 K/mm3 (150-450); RBC Distribution Width CV 12.7 % (11.6-14.6); RBC Distribution Width SD 43.8 fl (35.1-43.9); Red Blood Count 4.29 M/mm3 (4.6-6.2); White Blood Count 9.3 K/mm3 (4.4-11.0)
[2019-07-25 06:04] LABS: Anion Gap 6 (5-15); BUN 23 mg/dL (7-18); BUN/Creat Ratio 22.5 RATIO (10-20); Calcium,Total 8.2 mg/dL (8.5-10.1); Chloride 105 mmol/L (98-107); Creatinine, Serum 1.02 mg/dL (0.70-1.30); EST Glomerular Filtration Rate 81 mL/min (>60); Est Glom Filt Rate - Afr Amer 98 mL/min (>60); Estimated Creatinine Clearance 94.65 ml/min; Glucose 117 mg/dL (74-106); Potassium 3.8 mmol/L (3.5-5.1); Sodium Level 138 mmol/L (136-145)
[2019-07-25] MEDS: Ketorolac 15 MG/ML Vial IV (06:23)
[2019-07-25] MEDS: 0.9% Saline Lock 10 ML Syringe IV (06:24)
[2019-07-25 07:56] VITALS: BP 154/82; PULSE 72; RESP 16; TEMP 37.1; O2SAT 96
[2019-07-25] MEDS: Aspirin 81 MG TAB.CHEW PO (08:03)
[2019-07-25] MEDS: Ensure Surgery 237 ML LIQUID PO (08:04)
--- NOTE | 2019-07-25 08:15 | PCM.PN.ORT ---
Subjective: The patient was sitting in bedside chair upon examination. Patient denies any chest pain, shortness of breath, dizziness, lightheadedness, nausea or vomiting, or calf pain. Pain is controlled on medications. No adverse overnight events. Patient does complain of anterior thigh and groin pain. Patient has been up walking and has tolerated it well. Patient does wish to try to go home today. Objective: Vital signs stable and afebrile. Patient is able to plantarflex and dorsiflex actively. Sensation is intact to light touch to saphenous, sural, superficial and deep peroneal, and tibial distribution. Dressing is with mild drainage over the lateral one third but otherwise clean dry and intact. Negative Homans bilaterally, negative signs and symptoms of DVT. - Physical Exam Vitals/I&O's: Vital Signs Temp Pulse Resp BP Pulse Ox 98.7 F 72 16 154/82 H 96 07/25/19 07:56 07/25/19 07:56 07/25/19 07:56 07/25/19 07:56 07/25/19 07:56 Oxygen Flow Rate (L/min) 6 Oxygen Delivery Method Room Air Weight: 142 kg Body Mass Index (BMI) 41.3 Intake and Output for Last 24 Hours 07/23/19 07/24/19 07/25/19 23:59 23:59 23:59 Intake Total 2988.33 / 3288.33 591.67 / 591.67 Balance 2988.33 / 3288.33 591.67 / 591.67 General: Alert, Oriented x3, Cooperative, No apparent distress Laboratory Results 07/25/19 05:30: WBC 9.3, RBC 4.29 L, Hgb 13.3, Hct 40.4, MCV 94.2 H, MCH 31.0, MCHC 32.9, RDW Std Deviation 43.8, RDW Coeff of Daniela 12.7, Plt Count 171, MPV 10.4 07/25/19 05:30: Sodium 138, Potassium 3.8, Chloride 105, Carbon Dioxide 27.0, Anion Gap 6, BUN 23 H, Creatinine 1.02, Estim Creat Clear Calc 94.65, Est GFR (MDRD) Af Amer 98, Est GFR (MDRD) Non-Af 81, BUN/Creatinine Ratio 22.5 H, Glucose 117 H, Calcium 8.2 L Current Medications Acetaminophen (Tylenol) 1,000 mg PO Q8 [facility] Last Admin: 07/25/19 05:45 Dose: 1,000 mg Documented by: [facility], [facility]) [facility] Last Admin: 07/25/19 08:03 Dose: 81 mg Documented by: Enteral Nutritional Formula (Ensure Surgery) 237 ml PO TIDCM [facility] Last Admin: 07/25/19 08:04 Dose: 237 ml Documented by: Famotidine (Pepcid) 20 mg PO DAILY [facility] Last Admin: 07/24/19 17:25 Dose: Not Given Documented by: Hydrochlorothiazide () 12.5 mg PO DAILY [facility] Ketorolac Tromethamine (Toradol) 15 mg IV Q6H PRN PRN PRN Reason: Pain Score 1-5/10 Stop: 07/26/19 07:00 Last Admin: 07/25/19 06:23 Dose: 15 mg Documented by: Lisinopril (Zestril) 20 mg PO DAILY [facility] Meloxicam (Mobic) 7.5 mg PO BID [facility] Morphine Sulfate () 2 - 4 mg IV Q2H PRN PRN PRN Reason: Pain Score 4-10/10 Last Admin: 07/24/19 13:09 Dose: 2 mg Documented by: Morphine Sulfate () 2 - 4 mg IV Q2H PRN PRN PRN Reason: Pain Score 4-10/10 Ondansetron HCl (Zofran) 4 mg IV Q8H PRN PRN PRN Reason: NAUSEA Promethazine HCl (Phenergan) 12.5 mg IM Q6H PRN PRN; Protocol PRN Reason: NAUSEA/VOMITING Senna/Docusate Sodium (Senokot-S, Natividad-Colace) 2 tablet PO BID [facility] Last Admin: 07/24/19 21:30 Dose: 2 tablet Documented by: Sodium Chloride () 10 - 40 ml IV UD PRN PRN Reason: SALINE FLUSH Last Admin: 07/25/19 06:24 Dose: 10 ml Documented by: Tramadol HCl (Ultram) 50 - 100 mg PO Q6H PRN PRN PRN Reason: Pain Score 4-10/10 Last Admin: 07/25/19 03:10 Dose: 50 mg Documented by: Medical Necessity - Tobacco Use Smoking Status: Never smoker Tobacco Use: Non-smoker Assessment/Plan 1. S/P left direct anterior total hip arthroplasty POD #1 2. Continue Pain Medications: Tylenol and tramadol 3. DVT Prophylaxis: Aspirin 81 mg twice daily for 4 weeks postoperatively 4. PT/OT: Weightbearing as tolerated 5. H & H: 13.3/40.4, asymptomatic 6. Encouraged Incentive Spirometry 7. Disposition: Orthopedically stable, plan will be for discharge home this afternoon as long as pain is well controlled and patient tolerates physical therapy. Patient will follow-up per postop instructions. He has outpatient physical therapy established. Prescriptions will be E scribed to drug [place]. I have reviewed the [place] Automated Rx Reporting System (OARRS) report for this patient for refill pattern and other prescriber involvement as part of the appropriate surveillance for the provision of acute and chronic controlled medications. The report was requested and reviewed on the date of this entry and was considered in the prescribing process.
--- NOTE | 2019-07-25 08:24 | DCINST_ITS ---
Discharge Diet: No Restrictions Discharge Activity: May Not Drive - while taking narcotic pain medications. May shower in (days): 1 - Dressing must be intact to skin. Turn dressing away from water Ice area for (Minutes): 20 - Every 1-2 hours while awake Weight Bearing Status: Weight bearing as tolerated Elevate: Operative Extremity Additional Activity Instructions:: Wear elastic stockings for 2 weeks. DO NOT use alcohol with narcotic pain medication. DO NOT make important decisions while taking narcotic medication. If you have problems with taking your medication (rash, itching, nausea, etc.) call the office at once. Call your doctor if your incision/area has: Increased Pain/ Swelling, Increased Redness, Foul Smelling Discharge Call your doctor if you observe: Fever of 101 or Higher Remove Dressing in (days):: 4 - Okay to remove dressing on July 29, 2019 Additional Instructions: Follow orthopedic postop instructions Allergies/Adverse Reactions: Allergies No Known Allergies Allergy (Verified 12/17/18 14:03) Medications to take at Discharge Hydrochlorothiazide 12.5 mg PO DAILY 06/27/19 Lisinopril [Zestril] 20 mg PO DAILY 06/27/19 Acetaminophen [Tylenol] 1,000 mg PO Q8 #100 tab 07/25/19 Aspirin [Aspirin, Baby] 81 mg PO BIDCM #60 tab.chew 07/25/19 Famotidine [Pepcid] 20 mg PO DAILY #30 tab 07/25/19 Meloxicam [Mobic] 7.5 mg PO BID #60 tab 07/25/19 Senna/Docusate Sodium [Senokot-S] 2 tab PO BID #10 tab 07/25/19 traMADol [Ultram] 50 - 100 mg PO Q6H PRN PRN 7 Days #56 tablet 07/25/19 The following prescriptions were given: Aspirin [Aspirin, Baby] 81 mg PO BIDCM #60 tab.chew Transmission Status: Pending to [facility] #30 Meloxicam [Mobic] 7.5 mg PO BID #60 tab Transmission Status: Pending to [facility] #30 Famotidine [Pepcid] 20 mg PO DAILY #30 tab Transmission Status: Pending to [facility] #30 Senna/Docusate Sodium [Senokot-S] 2 tab PO BID #10 tab Transmission Status: Pending to [facility] #30 Acetaminophen [Tylenol] 1,000 mg PO Q8 #100 tab Transmission Status: Pending to [facility] #30 traMADol [Ultram] 50 - 100 mg PO Q6H PRN PRN 7 Days #56 tablet PRN Reason: Pain Score 4-10/10 Transmission Status: Sent to [facility] #30 Primary Care Physician: Sergio Luna MD [Primary Care Provider] - Test Results: Test results from this visit will be discussed in further detail at your follow- up appointment, if applicable. Please Follow Up With: Physical Therapy When: 07/29/19 @ 10:00 am Please Follow Up With: Marques Martinez PA-C When: 08/07/19 @ 10:00 am
[2019-07-25] MEDS: Lisinopril 20 MG Tablet PO (10:04)
[2019-07-25] MEDS: Famotidine 20 MG Tablet PO (10:04)
[2019-07-25] MEDS: Senna/Docusate Sodium 1 Tablet 2 TABLET PO (10:04)
[2019-07-25] MEDS: hydroCHLOROthiazide 12.5mg 12.5 MG PO (10:04)
--- NOTE | 2019-07-25 11:55 | CASEMGMT ---
RN CANDI Face to Face with patient for initial transition planning/care coordination assessment. RN CM introduced self and role at [facility]. Patient sitting in chair, alert and oriented. Patient willing to participate in assessment and is able to answer all questions appropriately. Care providers, pharmacy, and demographics verified. Patient wishes to discharge home and is setup with [facility] for outpatient therapy. Patient states he has no further needs or concerns at this time. CM to follow for discharge planning needs that may arise. PCP: Cheryl Specialists: pratik Sykes Pharmacy: [facility] Insurance: MMO Prescription Benefit: yes Living Will/HPOA: living will only LNOK: Living Arrangements: Patient lives with in single story home with 2 steps to enter the home. Patient independent prior to surgery Transportation: DME/HHC: Patient has raised toilet seat and walker at home. Patient is setup with [facility] for outpatient therapy for Monday. Disposition Plan: Patient to discharge home with outpatient therapy, family support, and follow-up plans in place. Kaci ARMSTRONG, RN, CM
[2019-07-25 13:05] VITALS: BP 153/83; PULSE 72; RESP 16; TEMP 36.8; O2SAT 96
== END 2019-07-25 17:25 | disposition home or self-care (01) | DRG 470 ==
LOC: ACINP 06:47 → MS3 11:58
PROVIDERS: Admitting Provider Specialist; Family Provider Family Medicine; PCP Family Medicine; Referring Provider Specialist; Visit Provider Specialist
PROC: 0SRB04A Replacement of Left Hip Joint with Ceramic on Polyethylene Synthetic Substitute, Uncemented, Open Approach (ICD-10-PCS; CPT 27284; principal; 2019-07-24 08:20)
DX: M16.12 Unilateral primary osteoarthritis, left hip (principal); I10 Essential (primary) hypertension
CPT/HCPCS: 36415; 73501; 73502; 76000; 80048; 82962; 85025; 85027; 87077; 87081; 93005; 97110; 97162; 97165; 97530; 97535; 99251; C1776; J7120; A4216; G0463

== ENCOUNTER → 2021-04-13 10:10 | Outpatient (CLI) | payer OTHER, SELFPAY ==
[2021-04-13 13:16] LABS: Anion Gap 5 (5-15); BUN 19 mg/dL (7-18); BUN/Creat Ratio 18.3 RATIO (10-20); Calcium,Total 9.3 mg/dL (8.5-10.1); Chloride 100 mmol/L (98-107); Cholesterol 164 mg/dL (200); Creatinine, Serum 1.04 mg/dL (0.70-1.30); EST Glomerular Filtration Rate 79 mL/min (>60); Est Glom Filt Rate - Afr Amer 95 mL/min (>60); Glucose 119 mg/dL (74-106); High Density Lipoprotein 35 mg/dL; PSA,Total - Annual Screen 0.82 ng/mL (0.00-4.00); Potassium 4.7 mmol/L (3.5-5.1); Sodium Level 134 mmol/L (136-145); Triglycerides 90 mg/dL; Very Low Density Lipoprotein 18 mg/dL (5-40)
== END ==
PROVIDERS: PCP Family Medicine; Referring Provider Family Medicine; Visit Provider Family Medicine
DX: I10 Essential (primary) hypertension (principal); Z12.5 Encounter for screening for malignant neoplasm of prostate
CPT/HCPCS: 36415; 80048; 80061; 84153; G0103

== ENCOUNTER → 2024-10-03 | Outpatient (CLI) | payer OTHER, SELFPAY ==
[2024-10-03 11:37] LABS: ALB/GLOB Ratio 0.9 RATIO (0.9-2.4); AST(SGOT) 49 U/L (15-37); Alanine Aminotransfer ALT/SGPT 80 U/L (16-61); Albumin, Serum 3.7 g/dL (3.2-5.0); Alkaline Phosphatase 91 U/L (45-117); Anion Gap 7 (5-15); BUN 17 mg/dL (7-18); BUN/Creat Ratio 18.8 RATIO (10-20); Calcium,Total 8.7 mg/dL (8.5-10.1); Chloride 102 mmol/L (98-107); Cholesterol 166 mg/dL (200); EST Glomerular Filtration Rate 92 mL/min (>60); Est Glom Filt Rate - Afr Amer 111 mL/min (>60); Globulin 4.2 g/dL (2.2-4.2); Glucose 187 mg/dL (74-106); High Density Lipoprotein 39 mg/dL; PSA,Total - Annual Screen 1.05 ng/mL (0.00-4.00); Potassium 3.9 mmol/L (3.5-5.1); Protein, Total 7.9 g/dL (6.4-8.2); Sodium Level 135 mmol/L (136-145); Triglycerides 101 mg/dL; Very Low Density Lipoprotein 20 mg/dL (5-40)
[2024-10-04 15:26] LABS: T4 Free Direct 0.69 ng/dL (0.76-1.46)
== END | disposition home or self-care (01) ==
PROVIDERS: PCP Family Medicine; Referring Provider Family Medicine; Visit Provider Family Medicine
DX: E11.9 Type 2 diabetes mellitus without complications (principal); Z12.5 Encounter for screening for malignant neoplasm of prostate
CPT/HCPCS: 36415; 80053; 80061; 84153; 84403; 84439; 84443; G0103

== ENCOUNTER → 2025-07-10 | Outpatient (CLI) | payer OTHER, SELFPAY ==
[2025-07-10 12:42] LABS: Anion Gap 10 (5-15); BUN 20 mg/dL (4-19); BUN/Creat Ratio 20.5 RATIO (10-20); Calcium,Total 8.9 mg/dL (7.6-11.0); Carbon Dioxide 23.8 mmol/L (21.0-32.0); Chloride 102 mmol/L (98-108); Glucose 116 mg/dL (70-99); Potassium 4.3 mmol/L (3.3-5.1)
== END | disposition home or self-care (01) ==
LOC: MFPLAB 09:36
PROVIDERS: PCP Family Medicine; Visit Provider Family Medicine
DX: E03.9 Hypothyroidism, unspecified (principal); R79.89 Other specified abnormal findings of blood chemistry
CPT/HCPCS: 36415; 80048; 84439; 84443